=== PATIENT | female | born 1980 | race Caucasian/White ===

== ENCOUNTER → 2020-11-19 | Outpatient (CLI) | payer OTHER ==
[~2020-11-19] MED LIST: PREDNISONE20 MG PO
== END ==
LOC: KOH-I 10:00
DX: E03.9 Hypothyroidism, unspecified (principal); E04.1 Nontoxic single thyroid nodule
CPT/HCPCS: 76536

== ENCOUNTER 2021-09-23 18:39 | Emergency (ER) | payer OTHER ==
[2021-09-23 20:04] LABS: HEMOGLOBIN 12.9 gm/dl (12.3-15.3); RED BLOOD COUNT 4.38 M/UL (4.00-5.10); WHITE BLOOD COUNT 5.1 K/UL (4.5-11.0)
[2021-09-23 20:34] LABS: BUN/CREATININE RATIO 27 (0-10)
[2021-09-23] MEDS ORDERED: BENZONATATE100 MG PO (23:18)
== END 2021-09-23 23:47 | disposition home or self-care (01) ==
LOC: ER1 18:39
PROVIDERS: Physician Assistant
DX: U07.1 COVID-19 (principal); I25.2 Old myocardial infarction; E03.9 Hypothyroidism, unspecified; I10 Essential (primary) hypertension; Z79.82 Long term (current) use of aspirin
CPT/HCPCS: 80053; 82550; 82553; 83874; 84484; 85025; 93005; 99284; Q9967

== ENCOUNTER → 2021-09-24 | Outpatient (CLI) | payer OTHER ==
[~2021-09-24] VITALS: Ht 162.6 cm; Wt 154.2 kg
[~2021-09-24] MED LIST changes: +BENZONATATE100 MG PO
== END ==
LOC: EROP 11:02
DX: U07.1 COVID-19 (principal); Z23 Encounter for immunization
CPT/HCPCS: M0247; Q0247

== ENCOUNTER → 2021-10-24 | Outpatient (CLI) | payer OTHER ==
[2021-10-24 18:03] LABS: BORDETELLA PARAPERTUSSIS Not Detected (Not Detectd); BORDETELLA PERTUSSIS Not Detected (Not Detectd); CHLAMYDIA PNEUMONIAE Not Detected (Not Detectd); CORONAVIRUS HKU1 Not Detected (Not Detectd); CORONAVIRUS NL63 Not Detected (Not Detectd); CORONOAVIRUS 229E Not Detected (Not Detectd); HUMAN METAPNEUMOVIRUS Not Detected (Not Detectd); HUMAN RHINOVIRUS/ENTEROVIRUS Not Detected (Not Detectd); INFLUENZA A Not Detected (Not Detectd); INFLUENZA B Not Detected (Not Detectd); MYCOPLASMA PNEUMONIAE Not Detected (Not Detectd); PARAINFLUENZA VIRUS 1 Not Detected (Not Detectd); PARAINFLUENZA VIRUS 2 Not Detected (Not Detectd); PARAINFLUENZA VIRUS 3 Not Detected (Not Detectd); PARAINFLUENZA VIRUS 4 Not Detected (Not Detectd); RESPIRATORY SYNCYTIAL VIRUS Not Detected (Not Detectd)
[2021-10-24 19:11] LABS: CORONAVIRUS OC43 DETECTED (Not Detectd); SARS-CoV-2 NOT DETECTED (Not Detectd)
== END ==
LOC: LAB 16:52
PROVIDERS: Physician Assistant
DX: R05.9 Cough, unspecified (principal); Z20.822 Contact with and (suspected) exposure to COVID-19
CPT/HCPCS: 71046; 87633

== ENCOUNTER → 2022-04-25 | Outpatient (CLI) | payer OTHER | LOC: US 15:30 | DX: R10.32 Left lower quadrant pain (principal) | CPT/HCPCS: 76882 ==

== ENCOUNTER → 2022-05-02 | Outpatient (CLI) | payer OTHER | LOC: KOH-I 14:00 | DX: M79.662 Pain in left lower leg (principal); M79.89 Other specified soft tissue disorders; R10.30 Lower abdominal pain, unspecified | CPT/HCPCS: 72220; 73502; 93971 ==